=== PATIENT | male | born 1990 | race American Indian/Alaskan Native ===

== ENCOUNTER 2016-04-28 21:50 | Emergency (ER) | payer BC ==
[2016-04-28 22:06] VITALS: BP 145/100
[2016-04-28 22:44] LABS: Basophils % (Auto) 0.2 % (0.0-1.8); Eosinophils % (Auto) 0.9 % (0.0-4.3); Hemoglobin 16.9 gm/dl (11.8-15.2); Mean Corpuscular HGB Conc 33 % (32-34); Mean Corpuscular Hemoglobin 30 pg (28-32); Mean Corpuscular Volume 89 fl (84-94); Platelet Count 304 K/mm3 (140-440); Red Blood Count 5.72 M/mm3 (3.65-5.03); Red Cell Distribution Width 12.5 % (13.2-15.2)
--- NOTE | 2016-04-28 23:01 | Emergency Department Report ---
Chief Complaint: Abdominal Pain Stated Complaint: ABD PAIN Time Seen by Provider: 04/28/16 22:56 - HPI History of Present Illness: Patient presents with abdominal pain diffuse, n/v/d, he admits to vomiting 20x in 2 days, admits diarrhea x 20, both in last 2 days. No otc medications taken. - ROS Review of Systems: All other systems unremarkable except documentation in HPI - Exam Vital Signs: Vital Signs 04/28/16 22:04 Temperature 99.5 F Pulse Rate 108 H Respiratory 18 Rate Blood Pressure 145/100 O2 Sat by Pulse 100 Oximetry Physical Exam: Gen: Male no apparent distress noted, ambulatory. Cardiovascular: Heart sounds present S1-S2, no murmur, gallop, edema or ectopy noted, 2+ pulses upper and lower extremities Respiratory: Chest symmetry with respirations, lungs clear to auscultate upper and lower lobes, respirations even and unlabored, no rales, rhonchi, crackles noted. Abdomen: bowel sounds present, soft, nondistended, tenderness to palpation diffusely, no rigidity, guarding or rebound tenderness Psych: AxOx3, answers questions appropriately, mood full range, affect normal, normal speech and tone. MSE screening note: Focused history and physical exam performed. Due to findings the following was ordered: seen by provider, laboratory studies ordered, and to go to main ED to be seen by physician ED Medical Decision Making - Lab Data Result diagrams: 04/28/16 22:31 - Medical Decision Making seen by provider, laboratory studies ordered, and to go to main ED to be seen by physician ED Disposition for MSE Condition: Stable Referrals: PRIMARY CARE [Primary Care Provider] - 3-5 Days
[2016-04-28 23:24] LABS: Alanine Aminotransferase 17 units/L (7-56); Albumin 4.2 g/dL (3.9-5); Albumin/Globulin Ratio 1.2 %; Alkaline Phosphatase 76 units/L (35-129); Anion Gap 18 mmol/L; BUN/Creatinine Ratio 8.18; Blood Urea Nitrogen 9 mg/dL (9-20); Calcium 9.4 mg/dL (8.4-10.2); Carbon Dioxide 27 mmol/L (22-30); Chloride 90.5 mmol/L (98-107); Glucose 93 mg/dL (75-100); Lipase 14 units/L (13-60); Potassium 3.5 mmol/L (3.6-5.0); Sodium 132 mmol/L (137-145); Total Protein 7.7 g/dL (6.3-8.2)
[2016-04-29 00:05] LABS: Bilirubin,Urine NEG (Negative); Blood,Urine NEG (Negative); Ketones,Urine NEG (Negative); Leukocyte Esterase,Urine NEG (Negative); Mucus,Urine 2+ /HPF; Nitrite,Urine NEG (Negative); Urobilinogen,Urine < 2.0 mg/dL (<2.0)
--- NOTE | 2016-04-30 14:55 | ED Elopement Review ---
ED Pt Elopement review - Results review Lab results: Laboratory Tests 04/28/16 04/28/16 04/28/16 22:31 22:31 Unknown WBC 10.0 RBC 5.72 H Hgb 16.9 H Hct 51.0 H MCV 89 MCH 30 MCHC 33 RDW 12.5 L Plt Count 304 Lymph % (Auto) 8.6 L [place] % (Auto) 8.8 H Eos % (Auto) 0.9 Baso % (Auto) 0.2 Lymph # 0.9 L [place] # 0.9 H Eos # 0.1 Baso # 0.0 Seg Neutrophils % 81.5 H Seg Neutrophils # 8.1 H Sodium 132 L Potassium 3.5 L Chloride 90.5 L Carbon Dioxide 27 Anion Gap 18 BUN 9 Creatinine 1.1 Estimated GFR > 60 BUN/Creatinine Ratio 8.18 Glucose 93 Calcium 9.4 Total Bilirubin 1.0 AST 25 ALT 17 Alkaline Phosphatase 76 Total Protein 7.7 Albumin 4.2 Albumin/Globulin Ratio 1.2 Lipase 14 Urine Color Yellow Urine Turbidity Clear Urine pH 5.0 Ur Specific [place] 1.024 Urine Protein 30 mg/dl Urine Glucose (UA) Neg Urine Ketones Neg Urine Blood Neg Urine Nitrite Neg Urine Bilirubin Neg Urine Urobilinogen < 2.0 Ur Leukocyte Esterase Neg Urine WBC (Auto) 5.0 Urine RBC (Auto) 3.0 U Epithel Cells (Auto) < 1.0 Urine Mucus 2+ - Call Back decision Pt Call Back Decision: No action required
== END 2016-04-28 22:58 | disposition left against medical advice (07) ==
LOC: ED 21:50
DX: R10.9 Unspecified abdominal pain (principal); Z53.21 Procedure and treatment not carried out due to patient leaving prior to being seen by health care provider
CPT/HCPCS: 36415; 80053; 81001; 83690; 85025